=== PATIENT | male | born 1960 | race Caucasian/White ===

== ENCOUNTER 2019-01-31 11:23 | Inpatient (IN) | payer OTHER ==
--- NOTE | 2019-01-31 13:05 | HP ---
CIWA Score Nausea/Vomitin Muscle Tremors: 2 Anxiety: 2 Agitation: 2 Paroxysmal Sweats: 1-Minimal Palms Moist Orientation: 0-Oriented Tacttile Disturbances: 1-Very Mild Itch/Numbness Auditory Disturbances: 1-Very Mild Visual Disturbances: 0-None Headache: 2-Mild CIWA-Ar Total Score: 13 - Admission Criteria OASAS Guidelines: Admission for Medically Managed Detox: Requires at least one of the followin. CIWA greater than 12 2. Seizures within the past 24 hours 3. Delirium tremens within the past 24 hours 4. Hallucinations within the past 24 hours 5. Acute intervention needed for co occurring medical disorder 6. Acute intervention needed for co occurring psychiatric disorder 7. Severe withdrawal that cannot be handled at a lower level of care (continued vomiting, continued diarrhea, abnormal vital signs) requiring intravenous medication and/or fluids 8. Admission ROS [facility] - HPI Chief Complaint: i need help to stop drinking alcohol,cocaine Allergies/Adverse Reactions: Allergies Allergy/AdvReac Type Severity Reaction Status Date / Time ibuprofen Allergy Severe Verified 01/31/19 13:43 History of Present Illness: this 58 years old male with alcohol and cocaine dependence,seeking detox, withdrawal symptom,last detox 2017 ,did not recall facility syncope nicotine dependence 1 pack and a half/day,will give nicotine patch weight loss depression not on medication longest period of sobriety 12 years plan for out patient program Exam Limitations: No Limitations - Ebola screening Have you traveled outside of the country in the last 21 days: No Have you had contact with anyone from an Ebola affected area: No Do you have a fever: No - Review of Systems Constitutional: Loss of Appetite, Malaise, Night Sweats, Changes in sleep, Weakness, Unintentional Wgt. Loss EENT: reports: Tearing, Nose Congestion Respiratory: reports: No Symptoms reported, Other (asthma) Cardiac: reports: No Symptoms Reported GI: reports: Nausea, Poor Appetite, Abdominal cramping : reports: No Symptoms Reported Musculoskeletal: reports: Back Pain, Muscle Pain Integumentary: reports: Dryness Neuro: reports: Headache, Tremors Endocrine: reports: No Symptoms Reported Hematology: reports: No Symptoms Reported Psychiatric: reports: No Sypmtoms Reported, Judgement Intact, Mood/Affect Appropiate, Orientated x3, Depressed Other Systems: Reviewed and Negative Patient History - Patient Medical History Hx Anemia: No Hx Asthma: Yes (last albuterol 8 years ago) Hx Chronic Obstructive Pulmonary Disease (COPD): No Hx Cancer: No Hx Congestive Heart Failure: No Hx Hypertension: No Hx Hypercholesterolemia: No Hx Pacemaker: No HX Cerebrovascular Accident: No Hx Seizures: No Hx Dementia: No Hx Diabetes: No Hx Gastrointestinal Disorders: No Hx Liver Disease: No Hx Genitourinary Disorders: No Hx Sexually Transmitted Disorders: No Hx Renal Disease (ESRD): No Hx Thyroid Disease: No Hx Human Immunodeficiency Virus (HIV): No (last 2017 ) Hx Hepatitis C: No Hx Depression: Yes Hx Suicide Attempt: No Hx Bipolar Disorder: No Hx Schizophrenia: No Other Medical History: no suicidal,no homicidal - Patient Surgical History Hx Abdominal Surgery: Yes (in [facility]) - PPD History Previous Implant?: Yes Documented Results: Negative w/o proof Implanted On Prior [facility] Admission?: No PPD to be Administered?: Yes - Smoking Cessation Smoking history: Current every day smoker Have you smoked in the past 12 months: Yes Cigars Per Day: 30 Hx Chewing Tobacco Use: No Initiated information on smoking cessation: Yes 'Breaking Loose' booklet given: 01/31/19 - Substance & Tx. History Hx Alcohol Use: Yes Hx Substance Use: Yes Substance Use Type: Alcohol, Cocaine Hx Substance Use Treatment: Yes (2018 unknown facility) - Substances abused Alcohol Substance route: Oral Frequency: Daily Amount used: 4 pt. vodka, 6 cans beers (25 oz) Age of first use: 15 Date of last use: 01/31/19 Crack Substance route: Smoking Frequency: Daily Amount used: $300 Age of first use: 31 Date of last use: 01/30/19 Other Other (specify): percocets Substance route: Oral Frequency: Daily Amount used: 10mg Age of first use: 58 Date of last use: 01/30/19 Marijuana/Hashish Substance route: Smoking Frequency: Daily Amount used: 5 $ Age of first use: 17 Date of last use: 01/31/19 Family Disease History - Family Disease History Family Disease History: Other: Father (no contact), Mother (dsa,alcohol), Brother (dsa,alcohol), Sister (dsa.alcohol) Admission Physical Exam [facility] - Vital Signs Vital Signs: Vital Signs - 24 hr 01/31/19 12:45 Temperature 98.2 F Pulse Rate 67 Respiratory 18 Rate Blood Pressure 93/59 L - Physical General Appearance: Yes: Moderate Distress, Tremorous, Irritable, Sweating, Anxious HEENTM: Yes: Normal ENT Inspection, AZAR, Pharynx Normal Respiratory: Yes: Lungs Clear, Normal Breath Sounds, No Respiratory Distress Neck: Yes: Within Normal Limits, Supple, Trachea in good position Breast: Yes: Within Normal Limits Cardiology: Yes: Within Normal Limits, Regular Rhythm, Regular Rate, S1, S2 Abdominal: Yes: Within Normal Limits, Normal Bowel Sounds, Non Tender, Flat, Soft, Surgical Scar Genitourinary: Yes: Within Normal Limits Back: Yes: Muscle Spasm Musculoskeletal: Yes: Back pain, Muscle Pain Extremities: Yes: Within Normal Limits, Normal Range of Motion, Tremors Neurological: Yes: supervisor packing II-XII NML intact, Alert, Motor Strength 5/5 Integumentary: Yes: Dry Lymphatic: Yes: Within Normal Limits - Diagnostic (1) Alcohol dependence with uncomplicated withdrawal Current Visit: Yes Status: Acute (2) Cocaine dependence Current Visit: Yes Status: Acute (3) Cannabis dependence Current Visit: Yes Status: Acute (4) Syncope Current Visit: Yes Status: Acute (5) Nicotine dependence Current Visit: Yes Status: Acute (6) Weight loss Current Visit: Yes Status: Acute (7) Depression Current Visit: Yes Status: Acute Cleared for Admission S - Detox or Rehab [facility] Level of Care: Medically Managed Detox Regimen/Protocol: Librium Inpatient Rehab Admission - Rehab Decision to Admit Inpatient rehab admission?: No
[2019-01-31] MEDS ORDERED: MELATONIN 5 MG TABLETS PO PRN (13:22)
[2019-01-31] MEDS ORDERED: ACETAMINOPHEN 325 MG TABLET (FP) PO PRN ×2 (13:22)
[2019-01-31] MEDS ORDERED: MAG HYDROX/AL HYDROX/SIMETH 30 ML UNIT-DOSE CUP PO PRN (13:22)
[2019-01-31] MEDS ORDERED: MAGNESIUM CITRATE 300 ML BOTTLE PO PRN (13:22)
[2019-01-31] MEDS ORDERED: MAGNESIUM HYDROX 2400MG/30ML ORAL SUSPENSION 30 ML CUP PO PRN (13:22)
[2019-01-31] MEDS ORDERED: BISMUTH SUBSALICYLATE 524 MG/30 ML UD PO PRN (13:22)
[2019-01-31] MEDS ORDERED: MENTHOL/PHENOL 1 EACH UD MM PRN (13:22)
[2019-01-31] MEDS ORDERED: chlordiazePOXIDE HCL 25 MG CAPSULE PO PRN (13:31)
--- NOTE | 2019-01-31 14:18 | PN ---
[facility] Progress Note Note: pt has allergy to ibuprofen therefore pepto is d/c as per pharmacy request.
[2019-01-31] MEDS: NICOTINE 21 MG/24 HOURS TOPICAL PATCH TD SCH (15:04)
[2019-01-31 15:59] LABS: HEMATOCRIT 35.7 % (35.4-49); MCH 32.6 pg (25.7-33.7); MCHC 33.5 g/dl (32.0-35.9); MEAN CELL VOLUME 97.3 fl (80-96); MEAN PLT VOLUME 9.3 fl (7.5-11.1); PLATELET COUNT 144 K/MM3 (134-434); RBC 3.67 M/mm3 (4.00-5.60); RDW 14.6 % (11.9-15.9); WHITE BLOOD COUNT 3.9 K/mm3 (4.0-10.0)
[2019-01-31 16:17] LABS: ALBUMIN 3.6 g/dl (3.4-5.0); ALK PHOS 62 U/L (45-117); ANION GAP 11 MMOL/L (8-16); BILIRUBIN,TOTAL 0.2 mg/dL (0.2-1); BLOOD UREA NITROGEN 18 mg/dL (7-18); CALCIUM 8.5 mg/dL (8.5-10.1); CHLORIDE 105 mmol/L (98-107); CO2 24 mmol/L (21-32); CREATININE 1.1 mg/dL (0.55-1.3); GLUCOSE,RANDOM 102 mg/dL (74-106); POTASSIUM 3.8 mmol/L (3.5-5.1); SGOT/AST 26 U/L (15-37); SGPT/ALT 20 U/L (13-61); SODIUM 140 mmol/L (136-145); TOT PROT 7.1 g/dl (6.4-8.2)
[2019-01-31] MEDS: chlordiazePOXIDE HCL 25 MG CAPSULE PO SCH ×2 (17:47→22:19)
[2019-01-31] MEDS: THIAMINE HCL 100 MG TABLET (FP) PO SCH (22:19)
[2019-01-31 23:30] LABS: URINE APPEARANCE CLEAR; URINE BACTERIA 1.2 /hpf (NEGATIVE); URINE BILIRUBIN NEGATIVE (NEGATIVE); URINE CASTS 6 /hpf (0-8); URINE COLOR YELLOW; URINE GLUCOSE (UA) NEGATIVE (NEGATIVE); URINE KETONE NEGATIVE (NEGATIVE); URINE LEUK ESTERASE TRACE (NEGATIVE); URINE NITRITE NEGATIVE (NEGATIVE); URINE PROTEIN NEGATIVE (NEGATIVE); URINE RBC 2 /hpf (0-4); URINE UROBILINOGEN 0.2 mg/dL (0.2-1.0); URINE WBC 4 /hpf (0-5)
[2019-02-01] MEDS: chlordiazePOXIDE HCL 25 MG CAPSULE PO SCH (05:53)
[2019-02-01] MEDS: METHOCARBAMOL 500 MG TABLET PO PRN ×2 (05:55→23:06)
--- NOTE | 2019-02-01 09:42 | PN ---
S CIWA - CIWA Score Nausea/Vomitin Muscle Tremors: 2 Anxiety: 2 Agitation: 2 Paroxysmal Sweats: 1-Minimal Palms Moist Orientation: 0-Oriented Tacttile Disturbances: 1-Very Mild Itch/Numbness Auditory Disturbances: 1-Very Mild Visual Disturbances: 0-None Headache: 2-Mild CIWA-Ar Total Score: 13 BHS Progress Note (SOAP) Subjective: alert,irritable,anxious,interrupted sleep,tremor Objective: 02/01/19 09:40 Vital Signs Temperature 98.6 F 02/01/19 09:25 Pulse Rate 85 02/01/19 09:25 Respiratory Rate 18 02/01/19 09:25 Blood Pressure 109/60 02/01/19 09:25 O2 Sat by Pulse Oximetry (%) 02/01/19 09:40 ekg nsr ,normal ecg,qt/qtc is 426/452 02/01/19 09:41 Laboratory Last Values WBC 3.9 K/mm3 (4.0-10.0) L 01/31/19 13:30 RBC 3.67 M/mm3 (4.00-5.60) L 01/31/19 13:30 Hgb 12.0 GM/dL (11.7-16.9) 01/31/19 13:30 Hct 35.7 % (35.4-49) 01/31/19 13:30 MCV 97.3 fl (80-96) H 01/31/19 13:30 MCH 32.6 pg (25.7-33.7) 01/31/19 13:30 MCHC 33.5 g/dl (32.0-35.9) 01/31/19 13:30 RDW 14.6 % (11.9-15.9) 01/31/19 13:30 Plt Count 144 K/MM3 (134-434) 01/31/19 13:30 MPV 9.3 fl (7.5-11.1) 01/31/19 13:30 Sickle Cell Screen Negative (NEGATIVE) 01/31/19 13:30 Sodium 140 mmol/L (136-145) 01/31/19 13:30 Potassium 3.8 mmol/L (3.5-5.1) 01/31/19 13:30 Chloride 105 mmol/L (98-107) 01/31/19 13:30 Carbon Dioxide 24 mmol/L (21-32) 01/31/19 13:30 Anion Gap 11 MMOL/L (8-16) 01/31/19 13:30 BUN 18 mg/dL (7-18) 01/31/19 13:30 Creatinine 1.1 mg/dL (0.55-1.3) 01/31/19 13:30 Creat Clearance w eGFR 69.24 (>60) 01/31/19 13:30 Random Glucose 102 mg/dL (74-106) 01/31/19 13:30 Calcium 8.5 mg/dL (8.5-10.1) 01/31/19 13:30 Total Bilirubin 0.2 mg/dL (0.2-1) 01/31/19 13:30 AST 26 U/L (15-37) 01/31/19 13:30 ALT 20 U/L (13-61) 01/31/19 13:30 Alkaline Phosphatase 62 U/L (45-117) 01/31/19 13:30 Total Protein 7.1 g/dl (6.4-8.2) 01/31/19 13:30 Albumin 3.6 g/dl (3.4-5.0) 01/31/19 13:30 Urine Color Yellow 01/31/19 16:27 Urine Appearance Clear 01/31/19 16:27 Urine pH 6.0 (5.0-8.0) 01/31/19 16:27 Ur Specific [place] 1.023 (1.010-1.035) 01/31/19 16:27 Urine Protein Negative (NEGATIVE) 01/31/19 16:27 Urine Glucose (UA) Negative (NEGATIVE) 01/31/19 16:27 Urine Ketones Negative (NEGATIVE) 01/31/19 16:27 Urine Blood Negative (NEGATIVE) 01/31/19 16:27 Urine Nitrite Negative (NEGATIVE) 01/31/19 16:27 Urine Bilirubin Negative (NEGATIVE) 01/31/19 16:27 Urine Urobilinogen 0.2 mg/dL (0.2-1.0) 01/31/19 16:27 Ur Leukocyte Esterase Trace (NEGATIVE) 01/31/19 16:27 Urine WBC (Auto) 4 /hpf (0-5) 01/31/19 16:27 Urine RBC (Auto) 2 /hpf (0-4) 01/31/19 16:27 Urine Casts (Auto) 6 /hpf (0-8) 01/31/19 16:27 U Epithel Cells (Auto) 5.0 /HPF (0-5) 01/31/19 16:27 U Sm Round Cell (Auto) None 01/31/19 16:27 Urine Bacteria (Auto) 1.2 /hpf (NEGATIVE) 01/31/19 16:27 RPR Titer Nonreactive (NONREACTIVE) 01/31/19 13:30 Assessment: 02/01/19 09:41 withdrawal symptom Plan: continue detox
--- NOTE | 2019-02-01 10:10 | PN ---
[facility] Progress Note Note: patient would like to see psychiatrist,stated has bipolar disorder,insomnia,on seroquel 50 mgs po nightly,ordered, psychiatrist evaluation
--- NOTE | 2019-02-01 10:13 | PN ---
[facility] Progress Note Note: would like regimen changed to valium instead librium
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
[2019-02-01] MEDS ORDERED: diazePAM 5 MG TABLET PO ONE (10:45)
[2019-02-01] MEDS: PRENATAL VITAMINS W/ FOLIC ACID TABLET (FP) PO SCH (10:54)
[2019-02-01] MEDS: NICOTINE 21 MG/24 HOURS TOPICAL PATCH TD SCH (10:54)
--- NOTE | 2019-02-01 12:25 | EKG ---
Test Reason : Blood Pressure : / mmHG Vent. Rate : 068 BPM Atrial Rate : 068 BPM P-R Int : 138 ms QRS Dur : 098 ms QT Int : 426 ms P-R-T Axes : 078 073 066 degrees QTc Int : 452 ms NORMAL SINUS RHYTHM NORMAL ECG NO PREVIOUS ECGS AVAILABLE Confirmed by GIOVANNA RGEER MD ([id number]) on 02/01/2019 12:25:08 PM Referred By: Confirmed By:GIOVANNA GREER MD
[2019-02-01] MEDS: diazePAM 5 MG TABLET PO SCH ×2 (13:26→23:06)
[2019-02-01] MEDS ORDERED: chlordiazePOXIDE HCL 25 MG CAPSULE PO SCH (17:00)
[2019-02-01] MEDS: hydrOXYzine PAMOATE 25 MG CAPSULE (FP) PO PRN ×2 (17:29→23:07)
[2019-02-01] MEDS: diazePAM 5 MG TABLET PO PRN (17:30)
[2019-02-01] MEDS ORDERED: QUEtiapine FUMARATE 50 MG TABLET PO SCH (22:00)
[2019-02-01] MEDS: THIAMINE HCL 100 MG TABLET (FP) PO SCH (23:09)
[2019-02-02] MEDS: diazePAM 5 MG TABLET PO SCH (05:40)
[2019-02-02 09:55] VITALS: BP 111/74; PULSE 77; TEMP 96.3
[2019-02-02] MEDS: hydrOXYzine PAMOATE 25 MG CAPSULE (FP) PO PRN (10:36)
[2019-02-02] MEDS: diazePAM 5 MG TABLET PO PRN (10:37)
[2019-02-02] MEDS: NICOTINE 21 MG/24 HOURS TOPICAL PATCH TD SCH (10:37)
[2019-02-02] MEDS: PRENATAL VITAMINS W/ FOLIC ACID TABLET (FP) PO SCH (10:44)
[2019-02-02] MEDS ORDERED: diazePAM 5 MG TABLET PO SCH (14:00)
--- NOTE | 2019-02-02 14:04 | DS ---
[facility] Detox Discharge Summary Admission Date: 01/31/19 Discharge Date: 02/02/19 - History Additional Comments: TC from RN after morning rounds that patient is requesting to leave. Pt c/o about "they are not doing about about me and my anxiety". Pt had earlier complained of anxiety during rounds and had been medicated for it per orders. I educated pt to practice meditated breathing and relaxation techniques and offered to re-order psych consult (he was seen by psych yesterday). Pt declined and insisted on leaving. Pt was anxious, agitated, not in resp distress. he had steady gait and not in acute distress. He was made to understand that he will be leaving AMA and he verbalized understanding. He is not on any home meds. Vital Signs Temperature 96.3 F L 02/02/19 09:55 Pulse Rate 77 02/02/19 09:55 Respiratory Rate 18 02/02/19 09:55 Blood Pressure 111/74 02/02/19 09:55 O2 Sat by Pulse Oximetry (%) - Physical Exam Results Vital Signs: Vital Signs Temperature 96.3 F L 02/02/19 09:55 Pulse Rate 77 02/02/19 09:55 Respiratory Rate 18 02/02/19 09:55 Blood Pressure 111/74 02/02/19 09:55 O2 Sat by Pulse Oximetry (%) Pertinent Admission Physical Exam Findings: withdrawal sx - Medication Discharge Medications: Ambulatory Orders NK [No Known Home Medication] 01/31/19 - AMA Did Patient Leave Against Medical Advice: Yes
[2019-02-02] MEDS ORDERED: chlordiazePOXIDE HCL 10 MG CAPSULE PO PRN (17:00)
[2019-02-02] MEDS ORDERED: chlordiazePOXIDE HCL 10 MG CAPSULE PO SCH (17:00)
[2019-02-03] MEDS ORDERED: diazePAM 5 MG TABLET PO ONE (06:00)
[2019-02-03] MEDS ORDERED: chlordiazePOXIDE HCL 10 MG CAPSULE PO SCH (17:00)
== END 2019-02-02 12:50 | disposition left against medical advice (07) | DRG 770 ==
LOC: YASAS 11:23 → Y6N 13:45
PROVIDERS: ADMIT Surgery; ATTEND Surgery
PROC: HZ2ZZZZ Detoxification Services for Substance Abuse Treatment (ICD-10-PCS; principal; 2019-01-31)
DX: F10.230 Alcohol dependence with withdrawal, uncomplicated (principal); F13.230 Sedative, hypnotic or anxiolytic dependence with withdrawal, uncomplicated; F14.20 Cocaine dependence, uncomplicated; F12.20 Cannabis dependence, uncomplicated; F17.210 Nicotine dependence, cigarettes, uncomplicated; F20.0 Paranoid schizophrenia; F19.282 Other psychoactive substance dependence with psychoactive substance-induced sleep disorder; F19.280 Other psychoactive substance dependence with psychoactive substance-induced anxiety disorder; F32.9 Major depressive disorder, single episode, unspecified; R55 Syncope and collapse; M12.9 Arthropathy, unspecified; R63.4 Abnormal weight loss; Z68.21 Body mass index [BMI] 21.0-21.9, adult; Z87.09 Personal history of other diseases of the respiratory system; Z59.0 Homelessness
CPT/HCPCS: 36415; 80053; 81003; 85027; 85660; 86593; 93005; 93010

== ENCOUNTER 2021-01-29 15:27 | Inpatient (IN) | payer OTHER ==
[2021-01-29 16:36] VITALS: BMI 21.6
[2021-01-29] MEDS ORDERED: NICOTINE POLACRILEX 2 MG GUM BUC PRN (18:40)
[2021-01-29] MEDS ORDERED: MAGNESIUM HYDROX 2400MG/30ML ORAL SUSPENSION 30 ML CUP PO PRN (18:40)
[2021-01-29] MEDS ORDERED: BISMUTH SUBSALICYLATE 524 MG/30 ML UD PO PRN (18:40)
[2021-01-29] MEDS ORDERED: METHOCARBAMOL 500 MG TABLET PO PRN (18:40)
[2021-01-29] MEDS ORDERED: chlordiazePOXIDE HCL 25 MG CAPSULE PO PRN (18:40)
[2021-01-29] MEDS ORDERED: IBUPROFEN 400 MG TABLET (FP) PO PRN (18:40)
[2021-01-29] MEDS ORDERED: MAG HYDROX/AL HYDROX/SIMETH 30 ML UNIT-DOSE CUP PO PRN (18:40)
[2021-01-29] MEDS ORDERED: ACETAMINOPHEN 325 MG TABLET (FP) PO PRN ×2 (18:40)
[2021-01-29] MEDS ORDERED: MENTHOL/PHENOL 1 EACH UD MM PRN (18:40)
[2021-01-29] MEDS ORDERED: MAGNESIUM CITRATE 300 ML BOTTLE PO PRN (18:40)
[2021-01-29] MEDS: NICOTINE 14 MG/24 HOURS TOPICAL PATCH TD SCH (20:41)
[2021-01-29] MEDS: PRENATAL VITAMINS W/ FOLIC ACID TABLET (FP) PO SCH (20:41)
[2021-01-29] MEDS: chlordiazePOXIDE HCL 25 MG CAPSULE PO SCH (23:16)
[2021-01-29] MEDS: hydrOXYzine PAMOATE 25 MG CAPSULE (FP) PO SCH (23:16)
[2021-01-29] MEDS: THIAMINE HCL 100 MG TABLET (FP) PO SCH (23:16)
[2021-01-29] MEDS: MELATONIN 5 MG TABLETS PO SCH (23:16)
[2021-01-30] MEDS: hydrOXYzine PAMOATE 25 MG CAPSULE (FP) PO SCH ×5 (05:34→22:22)
[2021-01-30] MEDS: chlordiazePOXIDE HCL 25 MG CAPSULE PO SCH ×4 (05:35→22:20)
[2021-01-30] MEDS: PRENATAL VITAMINS W/ FOLIC ACID TABLET (FP) PO SCH (10:21)
[2021-01-30] MEDS: NICOTINE 14 MG/24 HOURS TOPICAL PATCH TD SCH (10:23)
[2021-01-30 11:42] LABS: POTASSIUM 4.1 mmol/L (3.5-5.1)
[2021-01-30 11:45] LABS: BLOOD UREA NITROGEN 13.4 mg/dL (7-18); HEMATOCRIT 36.6 % (35.4-49); HEMOGLOBIN 12.2 GM/dL (11.7-16.9); MCH 32.6 pg (25.7-33.7); MCHC 33.4 g/dl (32.0-35.9); MEAN CELL VOLUME 97.5 fl (80-96); MEAN PLT VOLUME 9.6 fl (7.5-11.1); PLATELET COUNT 162 K/MM3 (134-434); RBC 3.75 M/mm3 (4.00-5.60); RDW 14.1 % (11.9-15.9); WHITE BLOOD COUNT 2.6 K/mm3 (4.0-10.0)
[2021-01-30 11:46] LABS: ALBUMIN 3.2 g/dl (3.4-5.0); CALCIUM 9.1 mg/dL (8.5-10.1)
[2021-01-30 11:48] LABS: CREATININE 1.2 mg/dL (0.55-1.3)
[2021-01-30 11:50] LABS: TOT PROT 6.4 g/dl (6.4-8.2)
[2021-01-30] MEDS: MELATONIN 5 MG TABLETS PO SCH (22:22)
[2021-01-30] MEDS: THIAMINE HCL 100 MG TABLET (FP) PO SCH (22:22)
[2021-01-31] MEDS: hydrOXYzine PAMOATE 25 MG CAPSULE (FP) PO SCH ×5 (05:21→22:15)
[2021-01-31] MEDS: chlordiazePOXIDE HCL 25 MG CAPSULE PO SCH ×4 (05:21→22:15)
[2021-01-31 10:26] LABS: HIV INTERPRETATION NEGATIVE (NEGATIVE)
[2021-01-31] MEDS: NICOTINE 14 MG/24 HOURS TOPICAL PATCH TD SCH (10:31)
[2021-01-31] MEDS: PRENATAL VITAMINS W/ FOLIC ACID TABLET (FP) PO SCH (10:32)
[2021-01-31] MEDS ORDERED: DICYCLOMINE HCL 20 MG TABLET PO ONE (11:51)
[2021-01-31] MEDS: FAMOTIDINE 20 MG TABLET PO SCH ×2 (11:58→22:15)
[2021-01-31] MEDS: ONDANSETRON *ODT* 4 MG TABLET SL PRN (11:58)
[2021-01-31] MEDS: THIAMINE HCL 100 MG TABLET (FP) PO SCH (22:14)
[2021-01-31] MEDS: MELATONIN 5 MG TABLETS PO SCH (22:14)
[2021-02-01] MEDS ORDERED: chlordiazePOXIDE HCL 10 MG CAPSULE PO PRN
[2021-02-01] MEDS: hydrOXYzine PAMOATE 25 MG CAPSULE (FP) PO SCH ×5 (05:24→22:27)
[2021-02-01] MEDS: chlordiazePOXIDE HCL 10 MG CAPSULE PO SCH ×4 (05:24→22:26)
[2021-02-01 07:11] LABS: SARS-CoV-2 NAA Not Detected (Not Detected)
[2021-02-01] MEDS: NICOTINE 14 MG/24 HOURS TOPICAL PATCH TD SCH (10:26)
[2021-02-01] MEDS: ONDANSETRON *ODT* 4 MG TABLET SL PRN (10:27)
[2021-02-01] MEDS: PRENATAL VITAMINS W/ FOLIC ACID TABLET (FP) PO SCH (10:27)
[2021-02-01] MEDS: FAMOTIDINE 20 MG TABLET PO SCH ×2 (10:27→22:26)
[2021-02-01 10:43] LABS: BASO % 0.2 % (0-2.0); EOS % 3.1 % (0-4.5); HEMOGLOBIN 12.3 GM/dL (11.7-16.9); LYMPH % 46.6 % (8-40); MCH 33.1 pg (25.7-33.7); MCHC 34.3 g/dl (32.0-35.9); MEAN CELL VOLUME 96.5 fl (80-96); MEAN PLT VOLUME 9.1 fl (7.5-11.1); MONO % 14.7 % (3.8-10.2); NEUT % 35.4 % (42.8-82.8); PLATELET COUNT 182 K/MM3 (134-434); RBC 3.73 M/mm3 (4.00-5.60); RDW 14.1 % (11.9-15.9); WHITE BLOOD COUNT 2.9 K/mm3 (4.0-10.0)
[2021-02-01] MEDS: NAPROXEN 375 MG TABLET PO PRN (18:02)
[2021-02-01] MEDS: THIAMINE HCL 100 MG TABLET (FP) PO SCH (22:26)
[2021-02-01] MEDS: MELATONIN 5 MG TABLETS PO SCH (22:27)
[2021-02-02] MEDS: chlordiazePOXIDE HCL 10 MG CAPSULE PO SCH ×2 (05:29→17:28)
[2021-02-02] MEDS: hydrOXYzine PAMOATE 25 MG CAPSULE (FP) PO SCH ×5 (05:30→22:36)
[2021-02-02] MEDS: FAMOTIDINE 20 MG TABLET PO SCH ×2 (10:22→22:34)
[2021-02-02] MEDS: NICOTINE 14 MG/24 HOURS TOPICAL PATCH TD SCH (10:22)
[2021-02-02] MEDS: PRENATAL VITAMINS W/ FOLIC ACID TABLET (FP) PO SCH (10:22)
[2021-02-02] MEDS: NAPROXEN 375 MG TABLET PO PRN (14:17)
[2021-02-02] MEDS: THIAMINE HCL 100 MG TABLET (FP) PO SCH (22:34)
[2021-02-02] MEDS: MELATONIN 5 MG TABLETS PO SCH (22:34)
[2021-02-03] MEDS ORDERED: chlordiazePOXIDE HCL 10 MG CAPSULE PO ONE (05:00)
[2021-02-03] MEDS: hydrOXYzine PAMOATE 25 MG CAPSULE (FP) PO SCH ×2 (05:37→10:26)
[2021-02-03 09:35] VITALS: BP 123/70; PULSE 90; TEMP 96.9
[2021-02-03] MEDS: PRENATAL VITAMINS W/ FOLIC ACID TABLET (FP) PO SCH (10:26)
[2021-02-03] MEDS: FAMOTIDINE 20 MG TABLET PO SCH (10:26)
[2021-02-03] MEDS: NICOTINE 14 MG/24 HOURS TOPICAL PATCH TD SCH (10:28)
== END 2021-02-03 11:06 | disposition home or self-care (01) | DRG 774 ==
LOC: YASAS 15:27 → Y6N 18:52 → UNDOADMIN 18:52 → Y6N 20:03
PROVIDERS: ADMIT Allergy & Immunology; ATTEND Allergy & Immunology
PROC: HZ2ZZZZ Detoxification Services for Substance Abuse Treatment (ICD-10-PCS; principal; 2021-01-29)
DX: F10.230 Alcohol dependence with withdrawal, uncomplicated (principal); F14.20 Cocaine dependence, uncomplicated; F12.20 Cannabis dependence, uncomplicated; F17.210 Nicotine dependence, cigarettes, uncomplicated; F19.24 Other psychoactive substance dependence with psychoactive substance-induced mood disorder; F20.9 Schizophrenia, unspecified; F32.9 Major depressive disorder, single episode, unspecified; D72.819 Decreased white blood cell count, unspecified; B18.2 Chronic viral hepatitis C; M19.09 Primary osteoarthritis, other specified site; Z56.0 Unemployment, unspecified; Z88.8 Allergy status to other drugs, medicaments and biological substances; Z91.018 Allergy to other foods
CPT/HCPCS: 36415; 80053; 85025; 85027; 86780; 87389; C9803; Q0162; U0003; U0005

== ENCOUNTER 2022-04-20 11:53 | Inpatient (IN) | payer OTHER ==
[2022-04-20] MEDS ORDERED: MAGNESIUM HYDROX 2400MG/30ML ORAL SUSPENSION 30 ML CUP PO PRN (12:38)
[2022-04-20] MEDS ORDERED: MAG HYDROX/AL HYDROX/SIMETH 30 ML UNIT-DOSE CUP PO PRN (12:38)
[2022-04-20] MEDS ORDERED: BISMUTH SUBSALICYLATE 524 MG/30 ML PO PRN (12:38)
[2022-04-20] MEDS ORDERED: chlordiazePOXIDE HCL 25 MG CAPSULE PO PRN (12:38)
[2022-04-20] MEDS ORDERED: MAGNESIUM CITRATE 300 ML BOTTLE PO PRN (12:38)
[2022-04-20] MEDS ORDERED: ACETAMINOPHEN 325 MG TABLET (FP) PO PRN ×2 (12:38)
[2022-04-20] MEDS ORDERED: BENZOCAINE/MENTHOL (CHLORASEPTIC ) LOZENGE MM PRN (12:38)
[2022-04-20] MEDS ORDERED: NICOTINE 10 MG CARTRIDGE (INHALER) IH PRN (12:38)
[2022-04-20] MEDS ORDERED: LOPERAMIDE HCL 2 MG CAPSULE PO PRN (12:38)
[2022-04-20] MEDS ORDERED: ALBUTEROL SO4 HFA INHALER IH PRN (12:49)
[2022-04-20] MEDS: hydrOXYzine PAMOATE 25 MG CAPSULE (FP) PO SCH ×3 (14:27→22:31)
[2022-04-20] MEDS: chlordiazePOXIDE HCL 25 MG CAPSULE PO SCH ×3 (14:27→22:31)
[2022-04-20] MEDS: NICOTINE 21 MG/24 HOURS TOPICAL PATCH TD SCH (14:29)
[2022-04-20] MEDS: PRENATAL VITAMINS W/ FOLIC ACID TABLET (FP) PO SCH (14:29)
[2022-04-20 17:58] LABS: HEMATOCRIT 39.2 % (35.4-49); HEMOGLOBIN 13.2 GM/dL (11.7-16.9); MCH 32.2 pg (25.7-33.7); MCHC 33.6 g/dl (32.0-35.9); MEAN CELL VOLUME 95.6 fl (80-96); MEAN PLT VOLUME 9.2 fl (7.5-11.1); PLATELET COUNT 148 10^3/uL (134-434); RDW 14.7 % (11.9-15.9); WHITE BLOOD COUNT 3.4 K/mm3 (4.0-10.0)
[2022-04-20 18:21] LABS: ALBUMIN 3.8 g/dl (3.4-5.0); CALCIUM 8.9 mg/dL (8.5-10.1)
[2022-04-20 18:23] LABS: BLOOD UREA NITROGEN 12.2 mg/dL (7-18)
[2022-04-20 18:25] LABS: CREATININE 1.2 mg/dL (0.55-1.3)
[2022-04-20 18:27] LABS: BILIRUBIN,TOTAL 0.5 mg/dL (0.2-1); TOT PROT 7.5 g/dl (6.4-8.2)
[2022-04-20] MEDS: MELATONIN 5 MG TABLETS PO SCH (22:31)
[2022-04-20] MEDS: THIAMINE HCL 100 MG TABLET (FP) PO SCH (22:31)
[2022-04-21] MEDS: chlordiazePOXIDE HCL 25 MG CAPSULE PO SCH ×4 (05:32→22:33)
[2022-04-21] MEDS: hydrOXYzine PAMOATE 25 MG CAPSULE (FP) PO SCH ×5 (05:33→22:32)
[2022-04-21] MEDS: PRENATAL VITAMINS W/ FOLIC ACID TABLET (FP) PO SCH (10:18)
[2022-04-21] MEDS: NICOTINE 21 MG/24 HOURS TOPICAL PATCH TD SCH (10:18)
[2022-04-21] MEDS: ONDANSETRON *ODT* 4 MG TABLET SL PRN (18:45)
[2022-04-21] MEDS: MELATONIN 5 MG TABLETS PO SCH (22:32)
[2022-04-21] MEDS: THIAMINE HCL 100 MG TABLET (FP) PO SCH (22:32)
[2022-04-21] MEDS: METHOCARBAMOL 500 MG TABLET PO PRN (22:34)
[2022-04-22] MEDS: chlordiazePOXIDE HCL 25 MG CAPSULE PO SCH ×4 (06:52→22:23)
[2022-04-22] MEDS: hydrOXYzine PAMOATE 25 MG CAPSULE (FP) PO SCH ×2 (06:52→10:27)
[2022-04-22] MEDS: PRENATAL VITAMINS W/ FOLIC ACID TABLET (FP) PO SCH (10:27)
[2022-04-22] MEDS: NICOTINE 21 MG/24 HOURS TOPICAL PATCH TD SCH (10:28)
[2022-04-22] MEDS ORDERED: SIMETHICONE 80 MG TAB.CHEW (FP) PO PRN (11:22)
[2022-04-22] MEDS: ONDANSETRON *ODT* 4 MG TABLET SL PRN (18:06)
[2022-04-22] MEDS: DICYCLOMINE HCL 10 MG CAPSULE PO PRN (18:06)
[2022-04-22] MEDS: MELATONIN 5 MG TABLETS PO SCH (22:21)
[2022-04-22] MEDS: THIAMINE HCL 100 MG TABLET (FP) PO SCH (22:22)
[2022-04-22] MEDS: METHOCARBAMOL 500 MG TABLET PO PRN (22:22)
[2022-04-23] MEDS ORDERED: chlordiazePOXIDE HCL 10 MG CAPSULE PO PRN
[2022-04-23] MEDS: hydrOXYzine PAMOATE 25 MG CAPSULE (FP) PO PRN ×2 (00:26→18:11)
[2022-04-23] MEDS: chlordiazePOXIDE HCL 10 MG CAPSULE PO SCH ×5 (05:38→22:35)
[2022-04-23] MEDS: PRENATAL VITAMINS W/ FOLIC ACID TABLET (FP) PO SCH ×2 (10:42→12:05)
[2022-04-23] MEDS: NICOTINE 21 MG/24 HOURS TOPICAL PATCH TD SCH ×2 (10:42→12:05)
[2022-04-23] MEDS: DICYCLOMINE HCL 10 MG CAPSULE PO PRN (18:11)
[2022-04-23] MEDS: ONDANSETRON *ODT* 4 MG TABLET SL PRN (18:11)
[2022-04-23] MEDS: THIAMINE HCL 100 MG TABLET (FP) PO SCH (22:35)
[2022-04-23] MEDS: MELATONIN 5 MG TABLETS PO SCH (22:35)
[2022-04-24] MEDS: chlordiazePOXIDE HCL 10 MG CAPSULE PO SCH ×2 (05:55→18:06)
[2022-04-24] MEDS: NICOTINE 21 MG/24 HOURS TOPICAL PATCH TD SCH (10:25)
[2022-04-24] MEDS: PRENATAL VITAMINS W/ FOLIC ACID TABLET (FP) PO SCH (10:25)
[2022-04-24 20:56] VITALS: TEMP 97.1
[2022-04-24] MEDS: THIAMINE HCL 100 MG TABLET (FP) PO SCH (21:59)
[2022-04-24] MEDS: MELATONIN 5 MG TABLETS PO SCH (21:59)
[2022-04-25] MEDS ORDERED: chlordiazePOXIDE HCL 10 MG CAPSULE PO ONE (05:00)
[2022-04-25 06:35] VITALS: BP 98/60; PULSE 63
== END 2022-04-25 09:04 | disposition home or self-care (01) | DRG 774 ==
LOC: YASAS 11:53 → Y3N 13:10
PROVIDERS: ADMIT Allergy & Immunology; ATTEND Surgery
PROC: HZ2ZZZZ Detoxification Services for Substance Abuse Treatment (ICD-10-PCS; principal; 2022-04-20)
DX: F10.230 Alcohol dependence with withdrawal, uncomplicated (principal); F14.20 Cocaine dependence, uncomplicated; F12.20 Cannabis dependence, uncomplicated; F17.210 Nicotine dependence, cigarettes, uncomplicated; F20.0 Paranoid schizophrenia; F32.A Depression, unspecified; B18.2 Chronic viral hepatitis C; J45.909 Unspecified asthma, uncomplicated; R07.82 Intercostal pain; R07.89 Other chest pain; M19.90 Unspecified osteoarthritis, unspecified site; R63.4 Abnormal weight loss; W22.03XA Walked into furniture, initial encounter; Y93.89 Activity, other specified; Y92.238 Other place in hospital as the place of occurrence of the external cause; Z91.018 Allergy to other foods; Z88.6 Allergy status to analgesic agent; Z91.14 Patient's other noncompliance with medication regimen; Z56.0 Unemployment, unspecified; Z59.00 Homelessness unspecified
CPT/HCPCS: 36415; 80053; 85027; 86780; 87811; 93005; 93010; C9803-CS; Q0162; U0003; U0005

== ENCOUNTER 2022-04-23 15:10 | Emergency (ER) | payer OTHER ==
[2022-04-23 15:20] VITALS: BP 97/68; PULSE 75; TEMP 98.4
[2022-04-23] MEDS ORDERED: ACETAMINOPHEN 325 MG TABLET (FP) PO ONE (15:53)
[2022-04-23] MEDS ORDERED: LIDOCAINE 5% TOPICAL PATCH TP ONE (15:53)
[2022-04-23] MEDS ORDERED: LIDOCAINE 5% TOPICAL PATCH ONE (16:38)
[2022-04-23] MEDS ORDERED: LIDOCAINE PATCH REMOVAL MC SCH (22:00)
== END 2022-04-23 20:36 | disposition home or self-care (01) ==
LOC: JERFT 15:10 → JER 15:10 → JERFT 20:36
DX: R07.81 Pleurodynia (principal)
CPT/HCPCS: 71046-TC-FY; 71101-TC-RT-FY; 99284-25

== ENCOUNTER 2023-10-06 12:15 | Inpatient (IN) | payer OTHER ==
[2023-10-06 13:24] VITALS: BMI 20.5
[2023-10-06] MEDS ORDERED: BENZONATATE 200 MG CAPSULE PO PRN (18:39)
[2023-10-06] MEDS ORDERED: NALOXONE HCL (KLOXXADO) 8 MG SPRAY NS PRN (18:39)
[2023-10-06] MEDS ORDERED: chlordiazePOXIDE HCL 25 MG CAPSULE PO PRN (18:39)
[2023-10-06] MEDS ORDERED: NICOTINE POLACRILEX 2 MG GUM BUC PRN (18:39)
[2023-10-06] MEDS ORDERED: hydrOXYzine PAMOATE 25 MG CAPSULE (FP) PO PRN (18:39)
[2023-10-06] MEDS ORDERED: BENZOCAINE/MENTHOL (CHLORASEPTIC ) LOZENGE MM PRN (18:39)
[2023-10-06] MEDS ORDERED: POLYETHYLENE GLYCOL (HEALTHYLAX) 3350 17 GM PACKET PO PRN (18:39)
[2023-10-06] MEDS ORDERED: MAG HYDROX/AL HYDROX/SIMETH 30 ML UNIT-DOSE CUP PO PRN (18:39)
[2023-10-06] MEDS ORDERED: ONDANSETRON *ODT* 4 MG TABLET SL PRN (18:39)
[2023-10-06] MEDS ORDERED: LOPERAMIDE HCL 2 MG CAPSULE PO PRN (18:39)
[2023-10-06] MEDS ORDERED: guaiFENesin 600 MG TABLET.ER (FP) PO PRN (18:39)
[2023-10-06] MEDS ORDERED: MAGNESIUM HYDROX 2400MG/30ML ORAL SUSPENSION 30 ML CUP PO PRN (18:39)
[2023-10-06] MEDS ORDERED: NALOXONE HCL 0.4 MG/ML VIAL IM PRN (18:39)
[2023-10-06] MEDS ORDERED: DICYCLOMINE HCL 10 MG CAPSULE PO PRN (18:39)
[2023-10-06] MEDS: BACLOFEN 10 MG TABLET (FP) PO PRN (20:29)
[2023-10-06] MEDS: THIAMINE HCL 100 MG TABLET (FP) PO SCH (22:27)
[2023-10-06] MEDS: chlordiazePOXIDE HCL 25 MG CAPSULE PO SCH (22:27)
[2023-10-06] MEDS: MELATONIN 5 MG TABLETS PO SCH (22:28)
[2023-10-07] MEDS: chlordiazePOXIDE HCL 25 MG CAPSULE PO SCH ×4 (05:34→22:16)
[2023-10-07] MEDS: PRENATAL VITAMINS W/ FOLIC ACID TABLET (FP) PO SCH (10:21)
[2023-10-07] MEDS: NICOTINE 14 MG/24 HOURS TOPICAL PATCH TD SCH (10:21)
[2023-10-07] MEDS ORDERED: ALBUTEROL SO4 HFA INHALER IH PRN (10:42)
[2023-10-07 12:33] LABS: HEMATOCRIT 39.7 % (35.4-49); HEMOGLOBIN 13.1 GM/dL (11.7-16.9); MCH 31.5 pg (25.7-33.7); MEAN CELL VOLUME 95.4 fl (80-96); MEAN PLT VOLUME 8.9 fl (7.5-11.1); PLATELET COUNT 197 10^3/uL (134-434); RBC 4.16 M/mm3 (4.00-5.60); RDW 14.1 % (11.9-15.9); WHITE BLOOD COUNT 3.8 K/mm3 (4.0-10.0)
[2023-10-07 12:48] LABS: CHLORIDE 107 mmol/L (98-107); POTASSIUM 4.1 mmol/L (3.5-5.1); SODIUM 139 mmol/L (136-145)
[2023-10-07 12:55] LABS: ALBUMIN 3.4 g/dl (3.4-5.0); ANION GAP 5 mmol/L (4-13); BLOOD UREA NITROGEN 18.3 mg/dL (7-18); CALCIUM 8.8 mg/dL (8.5-10.1); CO2 27 mmol/L (21-32); GLUCOSE,RANDOM 93 mg/dL (74-106)
[2023-10-07 12:57] LABS: CREATININE 1.2 mg/dL (0.55-1.3); SGOT/AST 30 U/L (15-37)
[2023-10-07 12:59] LABS: SGPT/ALT 23 U/L (13-61); TOT PROT 7.1 g/dl (6.4-8.2)
[2023-10-07 13:01] LABS: ALK PHOS 67 U/L (45-117)
[2023-10-07] MEDS: THIAMINE HCL 100 MG TABLET (FP) PO SCH (22:16)
[2023-10-07] MEDS: MELATONIN 5 MG TABLETS PO SCH (22:16)
[2023-10-08] MEDS: chlordiazePOXIDE HCL 25 MG CAPSULE PO SCH ×4 (05:34→22:38)
[2023-10-08] MEDS: NICOTINE 14 MG/24 HOURS TOPICAL PATCH TD SCH (10:18)
[2023-10-08] MEDS: BACLOFEN 10 MG TABLET (FP) PO PRN (10:21)
[2023-10-08] MEDS: ACETAMINOPHEN 325 MG TABLET (FP) PO PRN ×2 (10:21→15:46)
[2023-10-08] MEDS: PRENATAL VITAMINS W/ FOLIC ACID TABLET (FP) PO SCH (10:22)
[2023-10-08] MEDS: THIAMINE HCL 100 MG TABLET (FP) PO SCH (22:38)
[2023-10-08] MEDS: MELATONIN 5 MG TABLETS PO SCH (22:38)
[2023-10-09] MEDS ORDERED: chlordiazePOXIDE HCL 10 MG CAPSULE PO PRN
[2023-10-09] MEDS: chlordiazePOXIDE HCL 10 MG CAPSULE PO SCH ×2 (05:20→10:52)
[2023-10-09 06:07] VITALS: PULSE 81; RESP 18
[2023-10-09] MEDS: PRENATAL VITAMINS W/ FOLIC ACID TABLET (FP) PO SCH (10:14)
[2023-10-09] MEDS: NICOTINE 14 MG/24 HOURS TOPICAL PATCH TD SCH (10:14)
[2023-10-09 10:16] VITALS: BP 109/71; TEMP 97.5
[2023-10-10] MEDS ORDERED: chlordiazePOXIDE HCL 10 MG CAPSULE PO SCH (05:00)
[2023-10-11] MEDS ORDERED: chlordiazePOXIDE HCL 10 MG CAPSULE PO ONE (05:00)
== END 2023-10-09 09:23 | disposition left against medical advice (07) | DRG 770 ==
LOC: YASAS 12:15 → Y6N 19:42
PROVIDERS: ADMIT Allergy & Immunology; ATTEND Surgery
PROC: HZ2ZZZZ Detoxification Services for Substance Abuse Treatment (ICD-10-PCS; principal; 2023-10-06)
DX: F10.230 Alcohol dependence with withdrawal, uncomplicated (principal); F14.20 Cocaine dependence, uncomplicated; F12.20 Cannabis dependence, uncomplicated; F17.210 Nicotine dependence, cigarettes, uncomplicated; F19.24 Other psychoactive substance dependence with psychoactive substance-induced mood disorder; J45.30 Mild persistent asthma, uncomplicated; M15.9 Polyosteoarthritis, unspecified; B18.2 Chronic viral hepatitis C; Z59.02 Unsheltered homelessness
CPT/HCPCS: 36415; 80053; 80307; 85027; 86780; 87635; J0475

== ENCOUNTER 2024-03-14 13:46 | Inpatient (IN) | payer OTHER ==
[2024-03-14 14:38] VITALS: BMI 19.9
[2024-03-14] MEDS ORDERED: ALBUTEROL SO4 HFA INHALER IH PRN (14:59)
[2024-03-14] MEDS ORDERED: BENZONATATE 200 MG CAPSULE PO PRN (15:05)
[2024-03-14] MEDS ORDERED: BENZOCAINE/MENTHOL (CHLORASEPTIC ) LOZENGE MM PRN (15:05)
[2024-03-14] MEDS ORDERED: DICYCLOMINE HCL 10 MG CAPSULE PO PRN (15:05)
[2024-03-14] MEDS ORDERED: MAGNESIUM HYDROX 2400MG/30ML ORAL SUSPENSION 30 ML CUP PO PRN (15:05)
[2024-03-14] MEDS ORDERED: POLYETHYLENE GLYCOL (HEALTHYLAX) 3350 17 GM PACKET PO PRN (15:05)
[2024-03-14] MEDS ORDERED: LOPERAMIDE HCL 2 MG CAPSULE PO PRN (15:05)
[2024-03-14] MEDS ORDERED: NICOTINE POLACRILEX 2 MG LOZENGE BC PRN (15:05)
[2024-03-14] MEDS ORDERED: NICOTINE POLACRILEX 2 MG GUM BUC PRN (15:05)
[2024-03-14] MEDS ORDERED: guaiFENesin 600 MG TABLET.ER (FP) PO PRN (15:05)
[2024-03-14] MEDS ORDERED: ONDANSETRON *ODT* 4 MG TABLET ONE (18:08)
[2024-03-14] MEDS: ONDANSETRON *ODT* 4 MG TABLET SL PRN (18:09)
[2024-03-14] MEDS ORDERED: diazePAM 5 MG TABLET ONE (18:15)
[2024-03-14] MEDS: diazePAM 5 MG TABLET PO SCH (18:18)
[2024-03-14] MEDS: THIAMINE 100 MG TABLET PO SCH (22:25)
[2024-03-14] MEDS: MELATONIN 5 MG TABLETS PO SCH (22:25)
[2024-03-15] MEDS: PRENATAL VITAMINS W/ FOLIC ACID TABLET (FP) PO SCH (10:05)
[2024-03-15] MEDS: NICOTINE 14 MG/24 HOURS TOPICAL PATCH TD SCH (10:05)
[2024-03-15 11:25] LABS: POTASSIUM 4.3 mmol/L (3.5-5.1)
[2024-03-15 11:31] LABS: CALCIUM 8.8 mg/dL (8.5-10.1)
[2024-03-15 11:32] LABS: ALBUMIN 3.4 g/dl (3.4-5.0); BLOOD UREA NITROGEN 18.6 mg/dL (7-18)
[2024-03-15 11:34] LABS: HEMATOCRIT 38.9 % (35.4-49); MCH 31.6 pg (25.7-33.7); MCHC 33.4 g/dl (32.0-35.9); MEAN CELL VOLUME 94.4 fl (80-96); MEAN PLT VOLUME 8.7 fl (7.5-11.1); PLATELET COUNT 179 10^3/uL (134-434); RBC 4.12 M/mm3 (4.00-5.60); RDW 13.9 % (11.9-15.9); WHITE BLOOD COUNT 3.1 K/mm3 (4.0-10.0)
[2024-03-15 11:35] LABS: CREATININE 1.2 mg/dL (0.55-1.3)
[2024-03-15 11:36] LABS: BILIRUBIN,TOTAL 0.8 mg/dL (0.2-1)
[2024-03-15 11:37] LABS: TOT PROT 7.1 g/dl (6.4-8.2)
[2024-03-15] MEDS: diazePAM 5 MG TABLET PO PRN (14:39)
[2024-03-15 18:57] LABS: HIV INTERPRETATION NEGATIVE (NEGATIVE)
[2024-03-16] MEDS: diazePAM 5 MG TABLET PO SCH (05:51)
[2024-03-16] MEDS: ACETAMINOPHEN 325 MG TABLET (FP) PO PRN (05:51)
[2024-03-16] MEDS: METHOCARBAMOL 500 MG TABLET PO PRN (05:51)
[2024-03-16] MEDS: LORazepam 1 MG TABLET PO PRN (20:11)
[2024-03-16] MEDS: LORazepam 1 MG TABLET PO SCH (22:38)
[2024-03-17] MEDS: LORazepam 0.5 MG TABLET PO SCH (05:23)
[2024-03-17] MEDS ORDERED: diazePAM 5 MG TABLET PO SCH (06:00)
[2024-03-18] MEDS: LORazepam 0.5 MG TABLET PO ONE (05:44)
[2024-03-18] MEDS ORDERED: diazePAM 5 MG TABLET PO ONE (06:00)
[2024-03-18] MEDS: MAG HYDROX/AL HYDROX/SIMETH 30 ML UNIT-DOSE CUP PO PRN (17:37)
[2024-03-19 06:05] VITALS: RESP 16
[2024-03-19 09:02] VITALS: BP 108/70; PULSE 72; TEMP 98.2
== END 2024-03-19 08:43 | disposition home or self-care (01) | DRG 774 ==
LOC: YASAS 13:46 → Y3N 17:14
PROVIDERS: ADMIT Allergy & Immunology; ATTEND Surgery
PROC: HZ2ZZZZ Detoxification Services for Substance Abuse Treatment (ICD-10-PCS; principal; 2024-03-14)
DX: F10.230 Alcohol dependence with withdrawal, uncomplicated (principal); F14.20 Cocaine dependence, uncomplicated; F15.20 Other stimulant dependence, uncomplicated; F12.20 Cannabis dependence, uncomplicated; F17.210 Nicotine dependence, cigarettes, uncomplicated; F31.9 Bipolar disorder, unspecified; F19.24 Other psychoactive substance dependence with psychoactive substance-induced mood disorder; F43.10 Post-traumatic stress disorder, unspecified; J45.30 Mild persistent asthma, uncomplicated; M15.9 Polyosteoarthritis, unspecified; R07.9 Chest pain, unspecified
CPT/HCPCS: 36415; 80053; 80305; 85027; 86780; 86803; 87389; 93005; 93010; Q0162

== ENCOUNTER 2024-03-18 19:27 | Emergency (ER) | payer OTHER ==
[2024-03-18 19:34] VITALS: BP 108/73; PULSE 83; RESP 20; BMI 24.0
[2024-03-18] MEDS ORDERED: ACETAMINOPHEN INJECTION 100 ML IVPB ONE (20:51)
[2024-03-18 21:15] LABS: BASO % 0.5 % (0-2.0); EOS % 4.2 % (0-4.5); HEMATOCRIT 37.3 % (35.4-49); HEMOGLOBIN 12.5 GM/dL (11.7-16.9); LYMPH % 47.9 % (8-40); MCH 31.4 pg (25.7-33.7); MCHC 33.4 g/dl (32.0-35.9); MEAN CELL VOLUME 93.9 fl (80-96); MEAN PLT VOLUME 8.2 fl (7.5-11.1); MONO % 11.8 % (3.8-10.2); NEUT % 35.6 % (42.8-82.8); PLATELET COUNT 184 10^3/uL (134-434); RBC 3.97 M/mm3 (4.00-5.60); RDW 14.3 % (11.9-15.9); WHITE BLOOD COUNT 4.2 K/mm3 (4.0-10.0)
[2024-03-18 21:20] LABS: INR 0.93 (0.83-1.09); PROTHROMBIN TIME (PATIENT) 10.5 SEC (9.7-13.0)
[2024-03-18 21:34] LABS: CALCIUM 8.8 mg/dL (8.5-10.1)
[2024-03-18 21:35] LABS: ALBUMIN 3.3 g/dl (3.4-5.0); BLOOD UREA NITROGEN 25.4 mg/dL (7-18)
[2024-03-18 21:40] LABS: BILIRUBIN,TOTAL 0.2 mg/dL (0.2-1); TOT PROT 6.8 g/dl (6.4-8.2)
[2024-03-18] MEDS: ACETAMINOPHEN 1000 MG/100 ML BAG IVPB ONE (22:01)
== END 2024-03-18 23:32 | disposition home or self-care (01) ==
LOC: JER 19:27
PROC: 3E033NZ Introduction of Analgesics, Hypnotics, Sedatives into Peripheral Vein, Percutaneous Approach (ICD-10-PCS; principal; 2024-03-18)
DX: R07.9 Chest pain, unspecified (principal); R61 Generalized hyperhidrosis; R42 Dizziness and giddiness; R55 Syncope and collapse; Z20.822 Contact with and (suspected) exposure to COVID-19
CPT/HCPCS: 0241U-QW; 36415; 71045-TC-FY; 80053; 84484; 85025; 85610; 85730; 86850; 86900; 86901; 93005; 93010; 99285-25; J0131